=== PATIENT | male | born 1975 | race Caucasian/White ===

== ENCOUNTER 2021-11-25 22:56 | Emergency (ER) | payer BC ==
[~2021-11-25] VITALS: Ht 187.9 cm; Wt 140.1 kg
[2021-11-25] MEDS ORDERED: TETANUS,DIPTH,PERTUSS P/F (BOOSTRIX) 0.5 ML VIAL IM ONE (23:15)
[2021-11-25] MEDS ORDERED: TRANEXAMIC ACID 100 MG/ML 10 ML INJECTION IR STA (23:18)
--- NOTE | 2021-11-25 23:29 | ED Upper Extremity ---
General Chief Complaint: Laceration Stated Complaint: R INDEX FINGER LAC Nursing Triage Note: Patient states that he was slicing carrots on a mandoline and cut the tip of his right index finger. Patient states this happened approximately 40 minutes [employer]S SYSTEM[employer]. Patient states he is unable to get it to stop bleeding. Patient does have a small area of skin that is missing and moderate bleeding is noted. Bleeding is controlled with pressure. Source: patient History of Present Illness Date Seen by Provider: Nov 25, 2021 Time Seen by Provider: 22:59 Initial Comments 46-year-old male presenting with avulsion laceration to the tip of his right index finger. He was using a mandolin device in the kitchen and accidentally sliced the tip of his finger. He has been trying to hold pressure for the last 40 minutes since this happened to get the bleeding to stop. However he continued to have bleeding from his fingertip so they came to the emergency department. 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 He thinks his last tetanus shot was in the early . He denies allergies to medications. He denies any other complications or injuries. Onset: just prior to arrival Pain/Injury Location: right 2nd finger Method of Injury: incised (cut with mandolin while slicing carrots) Modifying Factors: Worse With Movement Allergies and Home Medications Allergies Coded Allergies: No Known Drug Allergies (Unverified , 11/25/21) Patient Home Medication List Home Medication List Reviewed: Yes Review of Systems Constitutional: no symptoms reported EENTM: no symptoms reported Respiratory: no symptoms reported Cardiovascular: no symptoms reported Gastrointestinal: no symptoms reported Genitourinary: no symptoms reported Musculoskeletal: no symptoms reported Skin: see HPI Psychiatric/Neurological: Denies Numbness, Denies Paresthesia; Other (pain at right index fingertip where he has avulsion of fingertip) Past Thtaxpq-Qhmixb-Mfrrea Hx Patient Social History Tobacco Use?: No Substance use?: No Alcohol Use?: No Pt feels they are or have been: No Past Medical History Surgery/Hospitalization HX: Factor V Leiden Physical Exam Vital Signs Vital Signs - First Documented 11/25/21 23:00 Temp 37.0 Pulse 74 Resp 14 B/P (MAP) 160/88 (112) Pulse Ox 97 O2 Delivery Room Air Capillary Refill : Less Than 3 Seconds Height, Weight, BMI Height: '" Weight: lbs. oz. kg; 39.00 BMI Method: General Appearance: WD/WN, no apparent distress Cardiovascular: normal peripheral pulses Hand: normal ROM, Right, laceration (avulsion to fingertip of right index finger with tenderness to palpation) Neurologic/Tendon: normal sensation, normal motor functions, normal tendon functions Neurologic/Psychiatric: air director II-XII nml as tested, no motor/sensory deficits, alert, oriented x 3 Skin: warm/dry, other (avulsion to fingertip of right index finger) Procedures/Interventions Wound Location: Upper Extremities (right index finger tip) Wound Length (cm): 1 Wound's Depth, Shape: sub Q Wound Explored: clean Progress Wound was cleaned with chlorhexidine scrub soap and sterile water. Then using direct pressure and tranexamic acid soaked gauze for 10 minutes by patient, but he continued to have bleeding with pressure being removed. I personally held direct pressure along with a tornicot in place to help with constricting blood flow. I held pressure for over 30 minutes with gauze soaked in Tranexamic acid. He continued to ooze and bleed when he did not have direct pressure on the avulsed tip. Attempt to place gauze soaked with tranexamic acid on wound and then place tube gauze over that did not work as the dressing came off and he was bleeding yet again. At this point with spending almost an hour of time in the ED holding direct pressure mostly with medication soaked gauze and still not controlling bleeding, he agreed to use of silver nitrate cautery. Had tried to initially avoid this as he is a Pianist and musician and wanted to try and avoid anything that might irritate his nerve endings more. However, since he continues to bleed the silver nitrate stick was used sparingly to achieve hemostasis in addition to holding direct pressure for 5 minutes. Then a dressing with Xeroform, Telfa, and tube gauze was applied so he had a pressure dressing. Counseled on management and follow up. Sent with a aluminum foam finger splint to use to protect his fingertip until it heals. Progress/Results/Core Measures Results/Orders My Orders Orders - ZAY SOW MD Dipht,Pertuss(Acell),Tet Adult (Boostrix (11/25/21 23:15) Tranexamic Acid Injection (Cyklokapron I (11/25/21 23:18) Wound Dressing-Ed (11/25/21 23:40) Orthopedic Equiment (11/25/21 23:40) Ed Ortho/Other Supplies Order (11/25/21 23:40) Medications Given in ED Current Medications Medications Dose Ordered Sig/Gabrielle Route Start Time Stop Time Status Last Admin Dose Admin Diphtheria/ Tetanus/Acell Pertussis 0.5 ml ONCE ONCE IM 11/25/21 23:15 11/25/21 23:18 DC 11/25/21 23:26 0.5 ML Vital Signs/I&O 11/25/21 11/26/21 23:00 00:41 Temp 37.0 Pulse 74 76 Resp 14 14 B/P (MAP) 160/88 (112) 146/84 Pulse Ox 97 99 O2 Delivery Room Air Room Air Blood Pressure Mean: 112 Progress Progress Note #1: Progress Note Since he wants to try and avoid further damage to his nerve endings in the fingertip will try using topical Tranexamic acid saturated in gauze and holding pressure for 7 to 8 minutes to see if that gets bleeding to stop and control his hemorrhage from avulsed fingertip. Update dTaP since it has been over 12 years at least. Progress Note #2: Progress Note Bleeding was not initially controlled after almost 45 minutes to an hour of holding pressure both with and without medicating because he continued to have bleeding. Finally he consented and agreed of silver nitrate used. This was used sparingly to apply to the avulsion injury to control bleeding and achieve hemostasis along with direct pressure he tolerated this relatively well and had no immediate complications Departure Impression Primary Impression: Avulsion of finger tip Qualified Codes: S61.209A - Unspecified open wound of unspecified finger without damage to nail, initial encounter Disposition: 01 HOME, SELF-CARE Condition: Stable Departure-Patient Inst. Decision time for Depature: 00:42 Referrals: NO,LOCAL PHYSICIAN (PCP/Family) Primary Care Physician Patient Instructions: Common Finger Injuries ED, Silver Nitrate, Wound Care ED Add. Discharge Instructions: Keep wound covered with pressure dressing for tonight. Try to keep hand elevated above heart level to help limit throbbing and pain. May remove dressing Sunday night and then wash gently with soap and water but do not soak the finger tip. You may want to keep a non-stick dressing over the fingertip to help pad and protect it for the next 1-2 weeks while it is healing. Use finger splint to prot ect fingertip from bumping it against anything while it is trying to heal over the next 1-2 weeks. Check with clinic for continued concerns All discharge instructions reviewed with patient and/or family. Voiced understanding. ZAY SOW MD Nov 25, 2021 23:29
[2021-11-26 00:41] VITALS: BP 146/84
== END 2021-11-26 00:51 | disposition home or self-care (01) ==
LOC: EDUNIT# 22:56 → ER FS 22:59
DX: S61.200A Unspecified open wound of right index finger without damage to nail, initial encounter (principal); Z23 Encounter for immunization; W27.4XXA Contact with kitchen utensil, initial encounter
CPT/HCPCS: 99282; A6223; 90715